=== PATIENT | male | born 1965 ===

== ENCOUNTER 2018-11-28 23:55 | Emergency (ER) | payer OTHER ==
[~2018-11-28] VITALS: Ht 172.7 cm; Wt 95.0 kg
[2018-11-28 23:58] VITALS: BP 122/73
[2018-11-29] MEDS ORDERED: METHOCARBAMOL 750 MG TABLET PO ONE (00:30)
[2018-11-29] MEDS ORDERED: KETOROLAC 30 MG/1 ML IM ONE (00:30)
--- NOTE | 2018-11-29 00:41 | NUR ---
PT WONDERING IN HALLS, ASKED REPEATEDLY TO STAY IN ROOM. PT WALKED OVER TO NURSES STATION AND STATED THE NOISES OF THE HOSPITAL ARE DRIVING HIM CRAZY AND HE DOES NOT WANT TO GO BACK TO HIS ROOM. PT OFFERED THE ORDERED MEDS FOR PAIN. PT REFUSED, AND WALKED OUT TO LOBBY.
== END 2018-11-29 00:45 | disposition left against medical advice (07) ==
LOC: ED 11-29 00:39
DX: M54.32 Sciatica, left side (principal); I10 Essential (primary) hypertension; E11.9 Type 2 diabetes mellitus without complications
CPT/HCPCS: 99281

== ENCOUNTER 2019-10-29 15:03 | Emergency (ER) | payer MEDICAID, OTHER ==
[~2019-10-29] VITALS: Ht 172.7 cm; Wt 95.0 kg
[2019-10-29 15:08] VITALS: BP 188/96
--- NOTE | 2019-10-29 15:44 | NUR ---
rx & D/C instructions provided by ELSI Aviles
== END 2019-10-29 15:40 | disposition home or self-care (01) ==
LOC: ED 15:30
DX: I10 Essential (primary) hypertension (principal); Z76.0 Encounter for issue of repeat prescription; E11.9 Type 2 diabetes mellitus without complications; F17.200 Nicotine dependence, unspecified, uncomplicated; F19.90 Other psychoactive substance use, unspecified, uncomplicated; Z72.89 Other problems related to lifestyle
CPT/HCPCS: 99283

== ENCOUNTER 2020-05-14 21:42 | Emergency (ER) | payer MEDICAID, OTHER ==
[~2020-05-14] VITALS: Ht 172.7 cm; Wt 85.2 kg
[2020-05-14 21:48] VITALS: BP 142/77
--- NOTE | 2020-05-14 22:38 | NUR ---
ASSUMED CARE OF PT AT THIS TIME. PT C/O HIGH BLOOD SUGAR TODAY "I HAVEN'T EVEN EATEN, AND I CAN TELL IT'S GETTING HIGH" PT REPORTS EPPS. BILATERAL FOOT PAIN FROM NEUROPATHY, WHICH IS CHRONIC.
[2020-05-14] MEDS ORDERED: AMLO5TAB10 PO (22:41)
--- NOTE | 2020-05-14 22:50 | NUR ---
BS REPORT FROM HUBERT FENTON. PT CARE TRANSFERRED AT THIS TIME. PT IS SITTING UP ON END OF GURNEY, APPEARS COMFORTABLE, NAD, RESP WNL. WCTM.
--- NOTE | 2020-05-14 22:52 | NUR ---
REPORT TO ELICEO SOLORIO. PT RECLINED IN BED, RESPIRATIONS EVEN AND UNLABORED ON RA. NAD NOTED AT THIS TIME. PT AWARE OF PLAN FOR DC FOLLOWING MED ADMINISTRATION.
[2020-05-14] MEDS ORDERED: INSULIN SINGLE DOSE, ER ONE ×3 (22:54→22:58)
[2020-05-14] MEDS ORDERED: INSULIN REGULAR 100 UNITS/ML, 3ML VIAL SQ-INSULIN SCH (23:00)
--- NOTE | 2020-05-14 23:01 | NUR ---
INSULIN BS 264 FOR INSULIN VERIFICATION.
--- NOTE | 2020-05-14 23:26 | NUR ---
NO BELONGINGS LEFT IN ROOM, PT DC'D WITHOUT PAPERWORK FROM THIS RN.
--- NOTE | 2020-05-14 23:50 | NUR ---
RN FOUND PT. PT DC'D BY RN, VERBALIZED UNDERSTANDING. STEADY GAIT ON DC.
== END 2020-05-14 23:52 | disposition home or self-care (01) ==
LOC: ED 22:12
DX: E11.65 Type 2 diabetes mellitus with hyperglycemia (principal); Z76.0 Encounter for issue of repeat prescription; I10 Essential (primary) hypertension
CPT/HCPCS: 82962; 99283; J1815